=== PATIENT | male | born 1965 | race Caucasian/White ===

== ENCOUNTER 2022-12-14 12:53 | Emergency (ER) | payer OTHER ==
[~2022-12-14] VITALS: Ht 170.2 cm; Wt 78.0 kg
[2022-12-14 13:15] VITALS: BP 146/101
[2022-12-14] MEDS ORDERED: HYDROcodone/APAP 10/325 MG 1 TAB TAB PO ONE (15:05)
[2022-12-14] MEDS ORDERED: LIDOCAINE 5% 1 EA PATCH TP ONE (15:05)
[2022-12-14] MEDS ORDERED: ACET-5629 PO (15:11)
--- NOTE | 2022-12-14 15:29 | NUR ---
Patient discharged with v/s stable. Written and verbal after care instructions given and explained. Patient alert, oriented and verbalized understanding of instructions. Ambulatory with steady gait. All questions addressed prior to discharge. ID band removed. Patient advised to follow up with PMD. Rx of PERCOCET given. Patient educated on indication of medication including possible reaction and side effects. Opportunity to ask questions provided and answered.
== END 2022-12-14 15:29 | disposition home or self-care (01) ==
LOC: MED 12:53
DX: M54.2 Cervicalgia (principal); G89.29 Other chronic pain; Z98.890 Other specified postprocedural states; Z79.899 Other long term (current) drug therapy
CPT/HCPCS: 99283